=== PATIENT | female | born 1955 | race Caucasian/White ===

== ENCOUNTER → 2016-11-07 | Outpatient (CLI) | payer BC ==
[~2016-11-07] MED LIST: CALC600T9 PO; CHOL1TAB42 PO; COEN100C3 PO; DILT120C68 PO; MULT-506 PO; THYR90TA PO
--- NOTE | 2016-11-07 17:11 | DIAGNOSTIC IMAGING REPORT ---
LEG LENGTH STUDY (WHOLE LEG) CLINICAL HISTORY: LEG LENGTH asymmetry COMPARISON STUDY: None FINDINGS: Maximum overall length length on the right is 85.1 cm. On the left maximum leg length is 85.0 cm. There is no significant leg length discrepancy. IMPRESSION: No significant leg length discrepancy. Per measurements, right leg is 1 mm longer than that of the left. This is not considered significant Electronically signed by: Lukas Resendiz M.D. 11/07/2016 5:10 PM Dictated Date/Time: 11/07/2016 5:08 PM
== END | disposition home or self-care (01) ==
LOC: C.RADBC 04:41
PROVIDERS: ATTEND Family Medicine
DX: M21.70 Unequal limb length (acquired), unspecified site (principal)

== ENCOUNTER → 2017-05-14 | Outpatient (CLI) | payer BC ==
[2017-05-14 14:31] LABS: THYROID STIMULATING HORMONE 0.302 uIu/ml (0.300-4.500)
== END | disposition home or self-care (01) ==
LOC: C.LABBC 11:02
PROVIDERS: ATTEND Internal Medicine Endocrinology, Diabetes & Metabolism
DX: R53.83 Other fatigue (principal); E03.9 Hypothyroidism, unspecified; N95.1 Menopausal and female climacteric states; E55.9 Vitamin D deficiency, unspecified; Z11.59 Encounter for screening for other viral diseases

== ENCOUNTER → 2017-06-11 | Outpatient (CLI) | payer BC | END | disposition home or self-care (01) | LOC: C.PAPS 10:45 | PROVIDERS: ATTEND Obstetrics & Gynecology | DX: Z01.419 Encounter for gynecological examination (general) (routine) without abnormal findings (principal) ==

== ENCOUNTER → 2017-09-13 | Outpatient (CLI) | payer BC ==
--- NOTE | 2017-09-13 13:46 | MAMMOGRAPHY REPORT ---
BILATERAL DIGITAL DIAGNOSTIC MAMMOGRAM TOMOSYNTHESIS WITH CAD: 09/13/2017 CLINICAL HISTORY: The patient reports left breast pain approximately 3 weeks ago. She followed up wi th her doctor who readjusted her hormone replacement therapy and the pain has since resolved. She de nies any palpable lumps, nipple discharge, or other complaints. TECHNIQUE: Breast tomosynthesis in addition to standard 2D mammography was performed. Current study was also evaluated with a Computer Aided Detection (CAD) system. Bilateral CC and MLO 2-D and tomosy nthesis images were obtained. COMPARISON: Comparison is made to exams dated: 09/20/2015 mammogram and 11/28/2010 mammogram - [facility]. BREAST COMPOSITION: There are scattered areas of fibroglandular density in both breasts. FINDINGS: There are no suspicious masses, calcifications, or areas of architectural distortion noted in either breast mammographically. There has been no significant interval change compared to prior exams. Asymmetry within the left superior breast middle depth on the MLO view is decreased compared to the prior exams including the 2010 exam, and has the appearance of normal fibroglandular tissue on the tomosynthesis images. Given that the pain has resolved, ultrasound was not performed. IMPRESSION: ACR BI-RADS CATEGORY 2: BENIGN There is no mammographic evidence of malignancy in either breast. Recommend clinical follow-up for l eft breast pain which has now resolved, and recommend routine bilateral screening mammograms in one y ear. The patient has been verbally notified of the results. Approximately 10% of breast cancers are not detected with mammography. A negative mammographic report should not delay biopsy if a clinically suggestive mass is present. Lissett Galdamez M.D. ah/:09/13/2017 09:46:09 Superintendent Operations Division: Kimber MARIE)([place]), [facility] letter sent: Normal /2 BI-RADS Code: ACR BI-RADS Category 2: Benign
== END | disposition home or self-care (01) ==
LOC: C.MAMM 09:12
PROVIDERS: ATTEND Obstetrics & Gynecology
DX: N64.4 Mastodynia (principal)

== ENCOUNTER → 2018-04-29 | Outpatient (CLI) | payer OTHER ==
--- NOTE | 2018-04-29 11:50 | DIAGNOSTIC IMAGING REPORT ---
ULTRASOUND OF THE CAROTID ARTERIES CLINICAL HISTORY: Lightheadedness. COMPARISON STUDY: No priors. TECHNIQUE: Real-time, grayscale, and color Doppler sonography of the carotid arteries is performed. Images are reviewed in the transverse and longitudinal planes. FINDINGS: Blood pressure in the right arm measures 127/94 and blood pressure in the left arm measures 137/81. The carotid arteries are patent bilaterally and demonstrate antegrade flow. There is no significant atherosclerotic plaque identified. Normal doppler arterial waveforms are seen throughout. Velocity measurements are listed below. Common carotid peak systolic velocity (cm/sec): RIGHT: 70 LEFT: 58 ICA proximal peak systolic velocity (cm/sec): RIGHT: 54 LEFT: 52 ICA mid peak systolic velocity (cm/sec): RIGHT: 66 LEFT: 47 ICA distal peak systolic velocity (cm/sec): RIGHT: 57 LEFT: 60 ICA/CC peak systolic ratio: RIGHT: 1.1 LEFT: 1.0 Antegrade flow was shown in the vertebral arteries. The external carotid arteries are patent. IMPRESSION: 1. There is no sonographic evidence of hemodynamically significant stenosis in the right or left carotid arterial system. 2. Antegrade flow is shown in the vertebral arteries. Electronically signed by: Travis Trotter M.D. 04/29/2018 11:48 AM Dictated Date/Time: 04/29/2018 11:47 AM
== END | disposition home or self-care (01) ==
LOC: C.ULTR 10:35
PROVIDERS: ATTEND Family Medicine
DX: R42 Dizziness and giddiness (principal)